=== PATIENT | female | born 1960 | race Caucasian/White ===

== ENCOUNTER 2018-02-14 15:38 | Emergency (ER) | payer MEDICARE, SELFPAY ==
[2018-02-14] VITALS (47 sets, daily range): BP systolic 110–133; BP diastolic 65–102; PULSE 55–96; RESP 3–33; TEMP 36.9; O2SAT 89–99
--- NOTE | 2018-02-14 16:02 | DI.REPORT_ITS ---
SYMPTOM/DIAGNOSIS: LEFT CHEST DISCOMFORT PA AND LATERAL CHEST: Comparison is made with 15 January 2010. The heart size is normal. The aorta is tortuous. The lungs are well inflated and clear. No infiltrate, effusion or pneumothorax is seen. IMPRESSION: Negative chest x-ray.
--- NOTE | 2018-02-14 16:04 | ED.GENADUL ---
Medical Decision Making - Lab Data Laboratory Results - last 24 hr 02/14/18 02/14/18 02/14/18 16:20 16:20 16:20 WBC 9.48 RBC 4.74 Hgb 14.4 Hct 40.9 MCV 86.3 MCH 30.4 MCHC 35.2 RDW 13.2 Plt Count 252 MPV 10.4 Immature Gran % 0.3 Neutrophils % 61.8 Lymphocytes % 26.5 Monocytes % 9.2 Eosinophils % 1.7 Basophils % 0.5 Absolute Neutrophils 5.86 Absolute Lymphocytes 2.51 Absolute Monocytes 0.87 H Absolute Eosinophils 0.16 Absolute Basophils 0.05 D-Dimer 597 H Sodium 142 Potassium 3.8 Chloride 107 Carbon Dioxide 23.4 Anion Gap 11.6 H BUN 22 H Creatinine 0.87 Estimated GFR/1.73 m2 >= 60.00 Glucose 88 Calcium 9.4 Magnesium 1.9 Total Bilirubin 0.3 AST 14 L ALT 27 Alkaline Phosphatase 106 Troponin I < 0.02 Total Protein 7.3 Albumin 3.4 Urine Color Urine Clarity Urine pH Ur Specific [place] Urine Protein Urine Ketones Urine Blood Urine Nitrite Urine Bilirubin Urine Urobilinogen Ur Leukocyte Esterase Urine RBC Urine WBC Ur Epithelial Cells Urine Crystals Urine Bacteria Urine Casts Urine Mucus Ur Culture Indicated? Urine Glucose 02/14/18 16:30 WBC RBC Hgb Hct MCV MCH MCHC RDW Plt Count MPV Immature Gran % Neutrophils % Lymphocytes % Monocytes % Eosinophils % Basophils % Absolute Neutrophils Absolute Lymphocytes Absolute Monocytes Absolute Eosinophils Absolute Basophils D-Dimer Sodium Potassium Chloride Carbon Dioxide Anion Gap BUN Creatinine Estimated GFR/1.73 m2 Glucose Calcium Magnesium Total Bilirubin AST ALT Alkaline Phosphatase Troponin I Total Protein Albumin Urine Color Yellow Urine Clarity Clear Urine pH 5.5 Ur Specific [place] 1.025 Urine Protein Negative Urine Ketones Trace H Urine Blood Large H Urine Nitrite Negative Urine Bilirubin Negative Urine Urobilinogen 0.2 Ur Leukocyte Esterase Small H Urine RBC 20-50 H Urine WBC 20-50 Ur Epithelial Cells Moderate Urine Crystals Moderate amorphous Urine Bacteria Moderate Urine Casts 0-2 fine granular Urine Mucus Moderate Ur Culture Indicated? No/sq. contamination Urine Glucose Negative - EKG Data -: EKG Interpreted by Ks EKG shows normal: sinus rhythm 02/14/18 16:05 Normal sinus rhythm, rate 91, QRS is narrow, there is no ST segment elevation present. - Radiology Data Radiology results: image reviewed - Medical Decision Making 57-year-old female presents with transient, sharp, left-sided chest discomfort while exercising/exerting herself in the garden. She arrives without fever, normotensive, mildly anxious. She pain improving. Differential diagnosis is broad including muscular cramping, gas, ACS, PE. IV placed, as obtain compression fluid bolus and ketorolac. Labs notable for slightly elevated d-dimer above her age related cutoff. Troponins negative, CBC and chemistries otherwise reassuring. Chest x-ray without acute finding. Given her presentation and slightly elevated d-dimer, she is referred for CT scan of the chest. No evidence of pulmonary embolism. Question of heart strain on her imaging per initial reading. Patient reexamined on a number of occasions, she is improved and is without further complaints. At the time of this dictation, 4 hour repeat troponin is pending. Patient be signed out to Dr. Velazquez pending review of final troponin and if negative anticipate final disposition to home with follow-up in primary care office. History of Present Illness - General Chief complaint: Chest Pain Stated complaint: CHEST PAIN Time Seen by Provider: 02/14/18 15:51 Source: patient, RN notes reviewed Mode of arrival: ambulatory Limitations: no limitations - History of Present Illness Initial comments: Chest pain: 57-year-old female states she was outside, shoveling dirt when she had the abrupt onset of shooting pain under her left breast that radiated to the left arm. Was severe, dropped her to her knees. She began to cough and felt sudden resolution of the pain. She states she subsequently drove herself to the emergency department and while en route had brief recurrence of the pain in her left shoulder which has now dissipated. She recently feels she has been dehydrated with episodes of lightheadedness and profuse sweating during yardwork. She has not noted any other modifying factors. She will also not recent cough that is been dry without production of sputum. - Related Data Famotidine [Pepcid] 40 mg PO BID tab-cap 11/27/17 Ondansetron [Zofran] 8 mg PO Q8H PRN tab-cap 11/27/17 Pantoprazole Sodium [Protonix] 40 mg PO BID tab-cap 11/27/17 Sucralfate [Carafate] 1 g PO QID tab-cap 11/27/17 Gabapentin 300 mg PO HS #30 tab-cap 12/25/17 Mirabegron [Myrbetriq] 50 mg PO DAILY #90 tab-cap 01/22/18 Solifenacin [Vesicare] 5 mg PO DAILY #90 tab-cap 01/22/18 Allergies Allergy/AdvReac Type Severity Reaction Status Date / Time prochlorperazine edisylate Allergy Intermediate dystonic Unverified 02/14/18 15:55 [From Compazine] prochlorperazine maleate Allergy Intermediate dystonic Unverified 02/14/18 15:55 [From Compazine] reaction droperidol Allergy Unverified 02/14/18 15:55 Review of Systems Other: 8 systems reviewed, otherwise negative Past Medical History - Past Medical History See nursing note General Exam - General Limitations: no limitations General appearance: alert, in no apparent distress, anxious - Head Head exam: Present: atraumatic, normocephalic - Eye Eye exam: Present: PERRL, EOMI - ENT ENT exam: Present: normal exam, normal external ear exam - Neck Neck exam: Present: normal inspection. Absent: tenderness - Respiratory Respiratory exam: Present: normal lung sounds bilaterally. Absent: respiratory distress - Cardiovascular Cardiovascular Exam: Present: regular rate, normal rhythm - GI/Abdominal GI/Abdominal exam: Present: soft. Absent: distended, tenderness - Extremities Exam Extremities exam: Present: normal inspection, full ROM, normal capillary refill. Absent: tenderness - Neurological Exam Neurological exam: Present: alert, oriented X3 - Psychiatric Psychiatric exam: Present: normal affect, anxious - Skin Skin exam: Present: warm, dry Course Vital Signs - 24 hr 02/14/18 15:50 Temperature 36.9 C Pulse 92 H Respiratory 21 Rate Blood Pressure 110/82
[2018-02-14 16:32] LABS: Abs Immature Grans 0.03 k/cumm (0.0-0.09); Absolute Basophil Count 0.05 k/cumm (0.0-0.2); Absolute Eosinophil Count 0.16 k/cumm (0.0-0.7); Absolute Lymphocyte Count 2.51 k/cumm (1.2-3.4); Absolute Monocyte Count 0.87 k/cumm (0.11-0.7); Absolute Neutrophil Count 5.86 k/cumm (1.2-6.7); Basophils % 0.5; Eosinophils % 1.7; HCT 40.9 % (36.0-46.0); HGB 14.4 g/dL (12.0-15.5); Immature Grans % 0.3; Lymphocytes % 26.5; Mean Corp. HGB Concentration 35.2 g/dL (32.0-36.0); Mean Corpuscular Hemoglobin 30.4 pg (27.0-33.0); Mean Corpuscular Volume 86.3 fL (80-95); Mean Platelet Volume 10.4 fL (8.0-11.0); Monocytes % 9.2; Neutrophils % 61.8; Platelet Count 252 x1000/uL (130-400); RBC 4.74 m/cumm (4.00-5.20); RBC Distribution Width 13.2 % (11.7-14.6); White Blood Cell Count 9.48 k/cumm (4.4-10.8)
[2018-02-14] MEDS: Normal Saline 1,000 ML 1000 ML IV (16:36)
[2018-02-14] MEDS: Ondansetron 4 MG/2 ML VIAL IVP (16:37)
--- NOTE | 2018-02-14 16:47 | DI.VRAD_ITS ---
EXAM: XR Chest, 2 Views CLINICAL HISTORY: 57 years old, female; Pain; Chest pain TECHNIQUE: Frontal and lateral views of the chest. COMPARISON: No relevant prior studies available. FINDINGS: Lungs: Unremarkable. No consolidation. Pleural space: Unremarkable. No pneumothorax. Heart: Unremarkable. No cardiomegaly. Mediastinum: Unremarkable. Bones/joints: Mild degenerative spondylosis of the thoracic spine. IMPRESSION: No acute findings. Dictated and Authenticated by: Remi Walton MD. Ordering:JULIANA HEWITT MD
[2018-02-14 17:03] LABS: ALT 27 U/L (12-78); AST 14 U/L (15-37); Albumin 3.4 g/dL (3.4-5.0); Alkaline Phosphatase 106 U/L (46-116); Anion Gap 11.6 mmol/L (3-11); BUN 22 mg/dL (7-18); Bilirubin, Total 0.3 mg/dL (0.2-1.0); CO2 23.4 mmol/L (21.0-32.0); CREATININE 0.87 mg/dL (0.55-1.02); Calcium 9.4 mg/dL (8.5-10.1); Chloride 107 mmol/L (98-107); Glucose 88 mg/dL (70-100); Magnesium 1.9 mg/dL (1.8-2.4); Potassium 3.8 mmol/L (3.5-5.1); Sodium 142 mmol/L (136-145); Total Protein 7.3 g/dL (6.4-8.2)
[2018-02-14 17:04] LABS: Troponin I < 0.02 ng/mL (0.00-0.06)
[2018-02-14] MEDS: Ketorolac 30 MG/ML VIAL 15 MG IVP (17:05)
[2018-02-14 17:10] LABS: D-Dimer 597 ng/mlFEU (<500)
[2018-02-14 17:13] LABS: Bilirubin Negative (Negative); Blood Large (Negative); Clarity Clear; Glucose Negative (Negative); Ketones Trace mg/dL (Negative); Leukocyte Esterase Small (Negative); Nitrite Negative (Negative); Specific Gravity 1.025 (1.005-1.025); Urobilinogen 0.2 EU/dL (Up TO 0.2); pH 5.5 (5-8)
[2018-02-14 17:28] LABS: Bacteria Moderate HPF (Negative); C & S Indicated? No/Sq. Contamination; Casts 0-2 Fine Granular LPF (Negative); Crystals Moderate Amorphous HPF (Negative); Epithelial Cells Moderate HPF (Negative); Mucus Moderate (Negative); RBC 20-50 (0-2); WBC 20-50 HPF (0-5)
--- NOTE | 2018-02-14 17:46 | DI.RPTCT_ITS ---
SYMPTOMS/DIAGNOSIS: LEFT-SIDED CHEST PAIN, ELEVATED D-DIMER CHEST CT FOR PULMONARY EMBOLISM: CT angiography was performed with multi slice acquisition and multi planar and 3D reconstruction. There is no evidence of pulmonary emboli or aortic dissection. There is motion at the level of the aortic root, as well as at the level of the heart. No mass or adenopathy is seen. No pleural or pericardial effusions are present. No infiltrates or pulmonary nodules are identified. There is a small hiatal hernia. IMPRESSION: No evidence of pulmonary emboli or other acute abnormality.
[2018-02-14] MEDS: Omnipaque 350 MG/ML 100 ML BTL IJ (18:27)
--- NOTE | 2018-02-14 18:56 | DI.VRAD_ITS ---
EXAM: CT Angiography Chest With Intravenous Contrast CLINICAL HISTORY: 57 years old, female; Pain and abnormal findings; Abnormal diagnostic tests; Elevated d-dimer; Chest pain; Left-sided chest pain TECHNIQUE: Axial computed tomographic angiography images of the chest with intravenous contrast using pulmonary embolism protocol. MIP reconstructed images were created and reviewed. Coronal and sagittal reformatted images were created and reviewed. COMPARISON: CR - CHEST 2 VIEWS PA,LAT 2018-02-14 16:31 FINDINGS: Pulmonary arteries: The main pulmonary arteries have normal diameters measuring 2.4 cm on the right and 2.3 cm and the left. No pulmonary embolism. Aorta: No acute findings. No thoracic aortic aneurysm. Lungs: Unremarkable. No mass. No consolidation. Pleural space: Unremarkable. No significant effusion. No pneumothorax. Heart: RV-LV ratio of approximately 1.4, suggestive of right heart strain. No significant pericardial effusion. Bones/joints: Mild degenerative spondylosis of the thoracic spine. No acute fracture. No dislocation. Soft tissues: Unremarkable. Lymph nodes: Unremarkable. No enlarged lymph nodes. Stomach and bowel: Small gastric hiatus hernia. IMPRESSION: 1. No pulmonary arterial embolism. 2. RV-LV ratio of approximately 1.4, suggestive of right heart strain. 3. Small gastric hiatus hernia. Dictated and Authenticated by: Remi Walton MD. Ordering:JULIANA HEWITT MD
[2018-02-14 20:21] LABS: Troponin I < 0.02 ng/mL (0.00-0.06)
--- NOTE | 2018-02-14 20:30 | ED.FU ---
Disposition Clinical Impression: Chest pain Disposition: HOME Condition: Good Instructions: Chest Pain (ED) Additional Instructions: You were evaluated today for chest pain with EKG, laboratory studies, chest x-ray and CAT scan. These did not show any significant abnormalities. Please follow-up with your primary care and contact them on Friday. Return to ED for fever, difficulty breathing, recurrent/worsening chest pain, other concerns. Referrals: Angle Santamaria [Primary Care Provider] - Medical Decision Making - Lab Data Laboratory Tests 02/14/18 02/14/18 02/14/18 16:20 16:20 16:20 WBC 9.48 RBC 4.74 Hgb 14.4 Hct 40.9 MCV 86.3 MCH 30.4 MCHC 35.2 RDW 13.2 Plt Count 252 MPV 10.4 Immature Gran % 0.3 Neutrophils % 61.8 Lymphocytes % 26.5 Monocytes % 9.2 Eosinophils % 1.7 Basophils % 0.5 Absolute Neutrophils 5.86 Absolute Lymphocytes 2.51 Absolute Monocytes 0.87 H Absolute Eosinophils 0.16 Absolute Basophils 0.05 D-Dimer 597 H Sodium 142 Potassium 3.8 Chloride 107 Carbon Dioxide 23.4 Anion Gap 11.6 H BUN 22 H Creatinine 0.87 Estimated GFR/1.73 m2 >= 60.00 Glucose 88 Calcium 9.4 Magnesium 1.9 Total Bilirubin 0.3 AST 14 L ALT 27 Alkaline Phosphatase 106 Troponin I < 0.02 Total Protein 7.3 Albumin 3.4 Urine Color Urine Clarity Urine pH Ur Specific [place] Urine Protein Urine Ketones Urine Blood Urine Nitrite Urine Bilirubin Urine Urobilinogen Ur Leukocyte Esterase Urine RBC Urine WBC Ur Epithelial Cells Urine Crystals Urine Bacteria Urine Casts Urine Mucus Ur Culture Indicated? Urine Glucose 02/14/18 02/14/18 16:30 19:50 WBC RBC Hgb Hct MCV MCH MCHC RDW Plt Count MPV Immature Gran % Neutrophils % Lymphocytes % Monocytes % Eosinophils % Basophils % Absolute Neutrophils Absolute Lymphocytes Absolute Monocytes Absolute Eosinophils Absolute Basophils D-Dimer Sodium Potassium Chloride Carbon Dioxide Anion Gap BUN Creatinine Estimated GFR/1.73 m2 Glucose Calcium Magnesium Total Bilirubin AST ALT Alkaline Phosphatase Troponin I < 0.02 Total Protein Albumin Urine Color Yellow Urine Clarity Clear Urine pH 5.5 Ur Specific [place] 1.025 Urine Protein Negative Urine Ketones Trace H Urine Blood Large H Urine Nitrite Negative Urine Bilirubin Negative Urine Urobilinogen 0.2 Ur Leukocyte Esterase Small H Urine RBC 20-50 H Urine WBC 20-50 Ur Epithelial Cells Moderate Urine Crystals Moderate amorphous Urine Bacteria Moderate Urine Casts 0-2 fine granular Urine Mucus Moderate Ur Culture Indicated? No/sq. contamination Urine Glucose Negative Results reviewed for labs ordered during visit: Yes - Medical Decision Making Patient's 4-hour troponin remains negative. She remains asymptomatic and feels fine. She will be discharged home to follow-up with primary care as she had discussed with Dr. Wolfe. Care Signed Out By:: Dr. Wolfe - Vital Signs Recent Vitals - 8H: Vital Signs - 8 hr 02/14/18 02/14/18 02/14/18 15:48 15:50 15:51 Temperature 98.4 F Pulse 92 H 86 Respiratory 21 19 21 Rate Blood Pressure 110/82 110/82 Pulse Oximetry 97 99 98 02/14/18 02/14/18 02/14/18 16:00 16:01 16:10 Temperature Pulse 84 Respiratory 23 25 H 19 Rate Blood Pressure 112/71 Pulse Oximetry 98 97 97 02/14/18 02/14/18 02/14/18 16:16 16:20 16:39 Temperature Pulse 86 Respiratory 16 15 17 Rate Blood Pressure 119/102 Pulse Oximetry 99 98 97 02/14/18 02/14/18 02/14/18 16:40 16:41 16:45 Temperature Pulse 78 78 Respiratory 14 3 L 18 Rate Blood Pressure 133/69 133/69 Pulse Oximetry 98 97 97 02/14/18 02/14/18 02/14/18 16:46 16:50 17:00 Temperature Pulse 77 Respiratory 17 15 15 Rate Blood Pressure 128/71 Pulse Oximetry 97 96 97 02/14/18 02/14/18 02/14/18 17:01 17:10 17:16 Temperature Pulse 70 71 Respiratory 28 H 6 L 15 Rate Blood Pressure 125/68 126/72 Pulse Oximetry 96 94 L 92 L 02/14/18 02/14/18 02/14/18 17:20 17:30 17:31 Temperature Pulse 74 Respiratory 15 15 29 H Rate Blood Pressure 112/66 Pulse Oximetry 89 L 91 L 92 L 02/14/18 02/14/18 02/14/18 17:40 17:46 17:50 Temperature Pulse 72 Respiratory 26 H 10 L 18 Rate Blood Pressure 118/71 Pulse Oximetry 92 L 96 95 02/14/18 02/14/18 02/14/18 18:00 18:01 18:25 Temperature Pulse 70 Respiratory 12 12 13 Rate Blood Pressure 117/68 Pulse Oximetry 96 96 98 02/14/18 02/14/18 02/14/18 18:26 18:30 18:31 Temperature Pulse 79 76 Respiratory 26 H 15 29 H Rate Blood Pressure 127/65 111/87 Pulse Oximetry 98 98 98 02/14/18 02/14/18 02/14/18 18:40 18:47 18:50 Temperature Pulse 64 Respiratory 33 H 9 L 11 L Rate Blood Pressure 117/75 Pulse Oximetry 98 98 97 02/14/18 02/14/18 19:00 19:01 Temperature Pulse 66 Respiratory Rate Blood Pressure 119/72 Pulse Oximetry 95 96 - Continuation of Care Continuation of Care Plan: Patient signed out to me pending a second troponin. She had presented with chest pain and was completely evaluated and worked up by Dr. Wolfe. If the 4-hour troponin was negative, he felt that she was fine to go home with follow-up with primary care.
== END 2018-02-14 20:53 | disposition home or self-care (01) ==
PROVIDERS: Emergency Medicine; Emergency Provider Emergency Medicine; PCP Nurse Practitioner Family
DX: R07.9 Chest pain, unspecified (principal); R79.1 Abnormal coagulation profile; G35 Multiple sclerosis
CPT/HCPCS: 71046; 71275; 93005; 96361; 96374; 96375; 99284; 99285; J1885; J2405; 36415; 80053; 81003; 81015; 83735; 84484; 85025; 85379; 93010; J3490

== ENCOUNTER 2018-03-12 02:13 | Outpatient (CLI) | payer MEDICARE, SELFPAY ==
[2018-03-12] MEDS: Barium Sulfate 700 MG TAB PO (10:23)
[2018-03-12] MEDS: Barium Sulfate 60% W/V 355 ML BTL PO (10:23)
--- NOTE | 2018-03-12 10:24 | DI.RAD_ITS ---
SYMPTOMS/DIAGNOSIS: DYSPHAGIA, ? ASPIRATION BARIUM SWALLOW: Fluoroscopy Time: 41 sec A lateral conference and event organiser view of the neck shows mild degenerative changes. The airway is unremarkable. The epiglottis appears normal. There is no prevertebral soft tissue swelling. The PA conference and event organiser view of the chest is compared with [id number]. The heart size is normal. The aorta is mildly tortuous. The lungs are clear. The patient swallowed barium without difficulty. The oropharyngeal transient was normal. No aspiration was identified during the exam. Esophageal peristalsis is normal. A small sliding hiatal hernia was noted when the patient was placed supine. There is severe gastroesophageal reflux. A barium tablet passed easily into the stomach without delay although the patient had the sensation that the pill was stuck in the upper throat. IMPRESSION: Small sliding hiatal hernia and severe gastroesophageal reflux. No evidence of stricture.
== END 2018-03-12 02:33 ==
PROVIDERS: PCP Nurse Practitioner Family; Visit Provider Internal Medicine Gastroenterology
DX: R13.10 Dysphagia, unspecified (principal); K44.9 Diaphragmatic hernia without obstruction or gangrene; K21.9 Gastro-esophageal reflux disease without esophagitis
CPT/HCPCS: 74220; J3490

== ENCOUNTER 2018-03-12 09:52 | Outpatient (REF) | payer MEDICARE, SELFPAY | END 2018-03-12 10:12 | LOC: LBN 09:52 | PROVIDERS: PCP Nurse Practitioner Family; Visit Provider Internal Medicine Gastroenterology | DX: K52.9 Noninfective gastroenteritis and colitis, unspecified (principal) | CPT/HCPCS: 87329; 82710; 87177 ==

== ENCOUNTER → 2018-04-20 12:26 | Outpatient (BNVA) | payer MEDICARE, SELFPAY | PROVIDERS: Visit Provider Nurse Practitioner Gerontology | DX: N39.46 Mixed incontinence (principal); R31.0 Gross hematuria | CPT/HCPCS: 81003; 99214 ==

== ENCOUNTER → 2018-10-21 11:10 | Outpatient (BNVA) | payer MEDICARE, SELFPAY | PROVIDERS: PCP Nurse Practitioner Family; Visit Provider Nurse Practitioner Gerontology | DX: N39.46 Mixed incontinence (principal); R31.9 Hematuria, unspecified | CPT/HCPCS: 81003; 99214 ==

== ENCOUNTER 2018-10-21 13:02 | Outpatient (REF) | payer MEDICARE, SELFPAY | END 2018-10-21 13:22 | LOC: LBN 13:02 | PROVIDERS: PCP Nurse Practitioner Family; Visit Provider Nurse Practitioner Gerontology | DX: R31.9 Hematuria, unspecified (principal) | CPT/HCPCS: 87086 ==

== ENCOUNTER 2019-01-28 12:53 | Outpatient (CLI) | payer MEDICARE, SELFPAY ==
--- NOTE | 2019-01-28 14:40 | DI.RAD_ITS ---
SYMPTOMS/DIAGNOSIS: GASTROESOPHAGEAL REFLUX DISEASE, K21.9, CHECK FOR ROBERT PA AND LATERAL CHEST: Comparison is made with March,. The heart size is within normal limits. The aorta is tortuous. The lungs are well inflated and clear. A small hiatal hernia is visible. IMPRESSION: Small hiatal hernia. No acute abnormality.
== END 2019-01-28 13:13 ==
PROVIDERS: PCP Nurse Practitioner Family; Visit Provider Internal Medicine Gastroenterology
DX: K21.9 Gastro-esophageal reflux disease without esophagitis (principal); K44.9 Diaphragmatic hernia without obstruction or gangrene
CPT/HCPCS: 71046

== ENCOUNTER 2019-07-14 12:07 | Outpatient (CLI) | payer MEDICARE, SELFPAY ==
--- NOTE | 2019-07-14 13:44 | DI.RAD_ITS ---
EXAM: XR CHEST 2V PA AND LATERAL INDICATION: POSTOP PAIN AFTER SHANTELL FUNDOPLICATION 9 DAYS AGO, G89.18, CHEST PAIN, R07.9. COMPARISON: No exams were available for comparison TECHNIQUE: 2D digital imaging was performed. FINDINGS: The heart is mildly enlarged. The aorta is mildly tortuous. Surgical clips are seen at the GE junct ion. There is no evidence of pneumomediastinum, free air or pneumothorax. The lungs appear clear. The visualized portions of the bowel are unremarkable. IMPRESSION: No acute abnormality.
== END 2019-07-14 12:27 ==
PROVIDERS: PCP Family Medicine; Visit Provider Family Medicine
DX: R07.9 Chest pain, unspecified (principal); I51.7 Cardiomegaly; G89.18 Other acute postprocedural pain
CPT/HCPCS: 71046

== ENCOUNTER → 2020-07-17 18:22 | Outpatient (CLI) | payer MEDICARE, SELFPAY ==
--- NOTE | 2020-07-17 12:45 | DI.RAD_ITS ---
EXAM: XR ANKLE LT COMPLETE CLINICAL HISTORY: s/p trauma M25.572 PAIN LT ANKLE. TECHNIQUE: 2D digital imaging was performed. COMPARISON: No exams were available for comparison FINDINGS: There is no evidence of fracture or widening mortise. Talar dome appears unremarkable. There is no osseous coalition. 6 millimeter inferior calcaneal spur is noted. IMPRESSION: DATA REPOSITORY: RADIATION DOSE DELIVERED:
--- NOTE | 2020-07-17 12:45 | DI.RAD_ITS ---
EXAM: XR FOOT LT COMPLETE CLINICAL HISTORY: s/p trauma M79.672 PAIN LT FOOT. TECHNIQUE: 2D digital imaging was performed. COMPARISON: CR XR ANKLE LT COMPLETE from 07/17/2020 FINDINGS: There is no evidence fracture nor diastasis of the Lisfranc joint. 6 millimeters. Calcaneal spur is noted. No calcifications plantar fascia. No osseous coalition. Sesamoid bones noted on the medial aspect foot adjacent to navicular tuberosity. There is mild hallux valgus. IMPRESSION: DATA REPOSITORY: RADIATION DOSE DELIVERED:
== END ==
PROVIDERS: PCP Family Medicine; Visit Provider Nurse Practitioner Family
DX: M79.672 Pain in left foot (principal); M20.12 Hallux valgus (acquired), left foot
CPT/HCPCS: 73610; 73630

== ENCOUNTER → 2020-09-27 01:31 | Outpatient (CLI) | payer MEDICARE, SELFPAY ==
[2020-09-27 09:23] LABS: CREATININE 0.7 mg/dL (0.55-1.02)
--- NOTE | 2020-09-27 10:35 | DI.CT_ITS ---
EXAM: CT ABDOMEN PELVIS W CLINICAL HISTORY: S/P FALL, INJURY, T14.90XA. TECHNIQUE: Imaging Protocol: Axial computed tomography images with coronal and sagittal reformatted images were created and reviewed CONTRAST MATERIAL: Intravenous: Omnipaque 100cc Oral: Yes COMPARISON: CT CHEST FOR PULMONARY EMBOLUS from 02/14/2018 FINDINGS: VISUALIZED LUNG BASES: No nodules nor pleural effusions evident. ABDOMEN: There is no ascites. Findings at the GE junction which probably reflect prior fundoplication surgery . LIVER: Mild hepatic steatosis. No distinct focal hepatic lesions identified. GALLBLADDER/BILIARY: No obvious gallbladder pathology. CBD is not dilated. PANCREAS: No evidence of pancreatic mass nor dilatation of the pancreatic duct. SPLEEN: Spleen is not enlarged. No obvious intrasplenic lesions. Splenic and portal veins are paten t. ADRENALS: There are no significant adrenal masses. KIDNEYS:No cysts evident. No solid renal masses. No calculi nor hydronephrosis.. ABDOMINAL AORTA: Abdominal aorta is not enlarged. LYMPH NODES:There is no retroperitineal nor paraaortic adenopathy. ABDOMINAL WALL/GI: No evidence of significant anterior abdominal wall hernia. No bowel obstruction. No evidence of bowel wall nor mesenteric hematoma. PELVIS: GI: No evidence of appendicitis.There is extensive sigmoid diverticulosis. Diverticuli are seen exte nding up to and proximal to the splenic flexure. There is no obvious acute diverticulitis. LYMPH NODES: There is no intrapelvic nor inguinal adenopathy. REPRODUCTIVE: Age appropriate. No free fluid URINARY BLADDER: Collapsed. OSSEOUS: In the left side the L1 vertebral body there is a lucency at the junction of the body and le ft pedicle which measures 10 x 8 millimeters, not exhibiting a sclerotic border. This is not expansi le. This is most probably a benign bone lesion given that it is unchanged from CT scan chest perform ed February 2018. 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 IMPRESSION: 1. Evidence of prior gastric fundoplication surgery. 2. Mild hepatic steatosis. No discrete focal hepatic lesions. 3. No evidence of significant intra-abdominal trauma, given history here. 4. Extensive sigmoid diverticulosis. No obvious acute diverticulitis although please note that a sub tle case of diverticulitis can be missed given the extensive involvement of the sigmoid with divertic feliciano here. Stable small benign-appearing bone lesion in the left side of L1 vertebral body, unchanged 2018 and p robably a small benign intraosseous hemangioma. No fractures nor listhesis. Tiny benign bone island is noted in the right hip femoral head. No hip fractures evident. RADIATION DOSE DELIVERED: Total DLP DATA REPOSITORY: All CT scans at this facility are submitted to the National Radiology Data Registry (NRDR) Dose Index Registry (DIR) with the [employer] (A[employer]). RADIATION OPTIMIZATION: All CT scans at this facility use at least one of these dose optimization te chniques: automated exposure control; mA and/or kV adjustment per patient size (includes targeted exa ms where dose is matched to clinical indication); or iterative reconstruction.
[2020-09-27] MEDS: Omnipaque 350 MG/ML 100 ML BTL IJ (10:40)
[2020-09-27] MEDS: Normal Saline - Diluent 50 ML VIAL IV (10:40)
--- NOTE | 2020-09-27 10:40 | DI.CT_ITS ---
EXAM: CT LUMBAR SPINE RECONS CLINICAL HISTORY: S/P FALL, TRAUMA, LOW BACK PAIN, ? FX. TECHNIQUE: Imaging Protocol: Axial computed tomography images with coronal and sagittal reformatted images were created and reviewed COMPARISON: CT CHEST FOR PULMONARY EMBOLUS from 02/14/2018 FINDINGS: Bones: There are no compression fractures nor obvious listhesis. Small lesion in the posterior left side of L1 is noted which is unchanged from CT scan of 2018 and probably a benign intraosseous heman gioma. The main osseous finding here is a defect-possible fracture in the left pars interarticularis of L5 l evel. There is no similar defect in the opposite-right side although there is some sclerosis. There are no obvious disc herniations.. No central spinal canal stenosis. No obvious foraminal sten osis No obvious sacral fracture. PARASPINAL SOFT TISSUES: Visualized paraspinal tissues appear unremarkable. IMPRESSION: 1. There is a unilateral left-sided line through the left pars interarticularis of L5 level which may represent a fracture at this level. No prominent displacement. No listhesis evident. To determine if this is an acute finding would recommend nuclear bone scan or MRI. 2. 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 RADIATION DOSE DELIVERED: Total DLP DATA REPOSITORY: All CT scans at this facility are submitted to the National Radiology Data Registry (NRDR) Dose Index Registry (DIR) with the [employer] (ACR). RADIATION OPTIMIZATION: All CT scans at this facility use at least one of these dose optimization te chniques: automated exposure control; mA and/or kV adjustment per patient size (includes targeted exa ms where dose is matched to clinical indication); or iterative reconstruction.
[2020-09-27] MEDS: Breeza Beverage 473 ML BTL PO (10:41)
== END ==
PROVIDERS: PCP Family Medicine; Visit Provider Emergency Medicine
DX: M54.5 Low back pain (principal); R93.7 Abnormal findings on diagnostic imaging of other parts of musculoskeletal system; K76.0 Fatty (change of) liver, not elsewhere classified; K57.30 Diverticulosis of large intestine without perforation or abscess without bleeding; Z98.84 Bariatric surgery status
CPT/HCPCS: 74177; 82565; J3490

== ENCOUNTER → 2020-09-28 10:04 | Outpatient (BNVA) | payer MEDICARE, SELFPAY | PROVIDERS: PCP Family Medicine; Referring Provider Family Medicine; Visit Provider Nurse Practitioner Gerontology | DX: N39.46 Mixed incontinence (principal) | CPT/HCPCS: 99213 ==

== ENCOUNTER 2021-04-18 16:30 | Outpatient (REF) | payer MEDICARE, SELFPAY | END 2021-04-18 16:31 | disposition home or self-care (01) | LOC: LBN 16:30 | PROVIDERS: PCP Family Medicine; Visit Provider Family Medicine | DX: R10.84 Generalized abdominal pain (principal) | CPT/HCPCS: 87077; 87086; 87186 ==

== ENCOUNTER 2021-05-07 14:18 | Outpatient (REF) | payer MEDICARE, SELFPAY | END 2021-05-07 14:19 | disposition home or self-care (01) | LOC: LBN 14:18 | PROVIDERS: PCP Family Medicine; Visit Provider Internal Medicine Gastroenterology | DX: K52.9 Noninfective gastroenteritis and colitis, unspecified (principal) | CPT/HCPCS: 87329; 87177 ==

== ENCOUNTER 2022-05-01 14:16 | Outpatient (CLI) | payer MEDICARE, SELFPAY ==
--- NOTE | 2022-05-01 14:30 | RT.EKG_ITS ---
APPROVED REPORT Exam: Resting ECG Reason for Exam: tachycardia Patient Location: O HR:77 bpm ECG Measurements Heart Rate 77 AXIS NE 163 P 38 QRSd 78 QRS -17 QT 353 T -12 QTc 400 Conclusion Sinus rhythm...normal P axis, V-rate 50- 99 Baseline artifact Probably normal EKG
== END 2022-05-01 14:17 | disposition home or self-care (01) ==
PROVIDERS: PCP Family Medicine; Visit Provider Nurse Practitioner Family
DX: R55 Syncope and collapse (principal)
CPT/HCPCS: 93010

== ENCOUNTER 2022-05-01 21:39 | Outpatient (REF) | payer MEDICARE, SELFPAY | END 2022-05-01 21:40 | disposition home or self-care (01) | LOC: LBN 21:39 | PROVIDERS: PCP Family Medicine; Visit Provider Nurse Practitioner Family | DX: R31.9 Hematuria, unspecified (principal); I10 Essential (primary) hypertension; N89.8 Other specified noninflammatory disorders of vagina | CPT/HCPCS: 87086; 87480; 87510; 87660 ==

== ENCOUNTER 2022-05-03 09:55 | Outpatient (RCR) | payer MEDICARE, SELFPAY ==
--- NOTE | 2022-05-03 09:45 | HOLTER_ITS ---
APPROVED REPORT Conclusion This is a 48-hour Holter monitor ordered for syncope Rhythm throughout was sinus with an average heart rate of 70. Minimum was 56, maximum 142 There were very rare atrial and ventricular ectopic beats There was one 4 beat self-limited atrial run There was no atrial fibrillation, no high-grade AV block, no pauses greater than 3 seconds There were no apparent patient symptoms
== END 2022-05-06 23:59 | disposition home or self-care (01) ==
LOC: CARDOPNVT 09:55
PROVIDERS: PCP Family Medicine; Visit Provider Nurse Practitioner Family
DX: R55 Syncope and collapse (principal)
CPT/HCPCS: 93227; 93225; 93226

== ENCOUNTER 2022-05-03 10:58 | Outpatient (CLI) | payer MEDICARE, SELFPAY ==
[2022-05-03 10:39] LABS: Abs Immature Grans 0.04 10^3/uL (0.0-0.06); Absolute Basophil Count 0.09 10^3/uL (0.0-0.2); Absolute Eosinophil Count 0.29 10^3/uL (0.0-0.7); Absolute Lymphocyte Count 2.94 10^3/uL (1.2-3.4); Absolute Monocyte Count 0.86 10^3/uL (0.1-0.8); Absolute Neutrophil Count 4.74 10^3/uL (1.2-6.7); Eosinophils % 3.2; HCT 46.3 % (36.0-46.0); HGB 15.1 g/dL (11.2-15.7); Immature Grans % 0.4; Lymphocytes % 32.8; MCH 29.5 pg (27.0-33.0); MCHC 32.6 % (32.0-36.0); MCV 91 fL (80-95); MPV 9.9 fL (8.0-11.0); Monocytes % 9.6; Platelet Count 296 10^3/uL (130-400); RBC 5.11 10^6/uL (3.93-5.22); RDW 12.9 % (11.7-14.6); RDW-SD 42.2 fL; WBC 8.96 10^3/uL (4.4-10.8)
[2022-05-03 12:08] LABS: ALT 18 U/L (14-59); AST 18 U/L (15-37); Albumin 3.6 g/dL (3.4-5.0); Alkaline Phosphatase 120 U/L (46-116); Anion Gap 7.1 mmol/L (3-11); BUN 15 mg/dL (7-18); Bilirubin, Total 0.3 mg/dL (0.2-1.0); CO2 27.9 mmol/L (21.0-32.0); CREATININE 0.8 mg/dL (0.55-1.02); Chloride 106 mmol/L (98-107); Estimated GFR 82.74 (mL/min/1.73m2); FREE T4 0.99 ng/dL (0.76-1.46); Glucose 98 mg/dL (74-106); Magnesium 2.1 mg/dL (1.8-2.4); Potassium 3.9 mmol/L (3.5-5.1); Sodium 141 mmol/L (136-145); TSH 0.99 uIU/mL (0.36-3.74); Total Protein 7.9 g/dL (6.4-8.2)
== END 2022-05-03 10:59 | disposition home or self-care (01) ==
LOC: LBO 11:01
PROVIDERS: Nurse Practitioner Family; PCP Family Medicine; Visit Provider Family Medicine
DX: I10 Essential (primary) hypertension (principal); R55 Syncope and collapse
CPT/HCPCS: 36415; 80053; 83735; 84439; 84443; 85025; 93225

== ENCOUNTER 2022-10-17 15:27 | Emergency (ER) | payer MEDICARE, SELFPAY ==
[2022-10-17 15:26] VITALS: BP 134/104; PULSE 75; RESP 18; TEMP 37.3; O2SAT 99
--- NOTE | 2022-10-17 16:00 | DI.CT_ITS ---
Exam(s) CT HEAD CERV SPINE FACIAL WO EXAM: CT HEAD CERV SPINE FACIAL WO CLINICAL HISTORY: left orbital contusion, neck pain post fall. TECHNIQUE: Imaging Protocol: Axial computed tomography images with coronal and sagittal reformatted images were created and reviewed COMPARISON: CT HEAD WITHOUT CONTRAST from 10/04/2014 FINDINGS: CT Head: Ventricles and Extra axial spaces: Normal in size and morphology for the patient's age. Hemorrhage: None. Cerebral parenchyma: Normal. Midline shift: None. Brainstem/Cerebellum: Normal. Calvarium: Normal. Visualized Paranasal sinuses/Mastoids: Clear. Soft Tissues: Unremarkable. CT Face: Facial Bones: No fracture is noted in facial bones. Sinuses and Mastoids: Unremarkable. Globes, extraocular muscles, optic nerves and retrobulbar fat: Normal. Upper aerodigestive tract: Normal. Mandible and bilateral temporomandibular joints: Normal. Soft tissues: Normal. CT cervical spine: Mild degenerative changes. No evidence of fracture. Alignment is normal. No soft tissue findings. No pneumothorax at the lung apices. IMPRESSION: 1. Head CT: No acute intracranial process. 2. Facial CT: No acute facial fracture. 3. Cervical spine CT: Mild degenerative changes. RADIATION DOSE DELIVERED: 2,015.53mGy.cm Total DLP DATA REPOSITORY: All CT scans at this facility are submitted to the National Radiology Data Registry (NRDR) Dose Index Registry (DIR) with the [employer] (ACR). RADIATION OPTIMIZATION: All CT scans at this facility use at least one of these dose optimization te chniques: automated exposure control; mA and/or kV adjustment per patient size (includes targeted exa ms where dose is matched to clinical indication); or iterative reconstruction.
--- NOTE | 2022-10-17 16:10 | DI.RAD_ITS ---
Exam(s) XR KNEE LT 3V AP,LAT,SHILA EXAM: XR KNEE LT 3V AP,LAT,SHILA CLINICAL HISTORY: knee pain, post fall. TECHNIQUE: 2D digital imaging was performed. Three views. COMPARISON: No exams were available for comparison FINDINGS: BONES: No acute fracture is present. No bony destructive lesion is seen. JOINTS: The knee is normally aligned. A small joint effusion is seen. SOFT TISSUE: Normal. IMPRESSION: Small joint effusion. DATA REPOSITORY: RADIATION DOSE DELIVERED:
--- NOTE | 2022-10-17 16:10 | DI.RAD_ITS ---
Exam(s) XR HAND RT COMPLETE EXAM: XR HAND RT COMPLETE CLINICAL HISTORY: 4th finger pain. TECHNIQUE: 2D digital imaging was performed. Three views. COMPARISON: No exams were available for comparison FINDINGS: BONES: No acute fracture is present. No bony destructive lesion is seen. JOINTS: No dislocation present. Minimal degenerative changes. SOFT TISSUE: Normal. IMPRESSION: Unremarkable radiographs of the right hand. DATA REPOSITORY: RADIATION DOSE DELIVERED:
--- NOTE | 2022-10-17 16:12 | DI.RAD_ITS ---
Exam(s) XR FOREARM LT EXAM: XR FOREARM LT CLINICAL HISTORY: left forearm. TECHNIQUE: 2D digital imaging was performed. Two views. COMPARISON: No exams were available for comparison FINDINGS: BONES: No acute fracture is present. No bony destructive lesion is seen. Visualized portion of elbow and wrist joints are unremarkable. SOFT TISSUE: Normal. IMPRESSION: Unremarkable radiographs of the left forearm. DATA REPOSITORY: RADIATION DOSE DELIVERED:
--- NOTE | 2022-10-17 17:47 | DI.VRAD_ITS ---
PROCEDURE INFORMATION: Exam: CT Head Without Contrast Exam date and time: 10/17/2022 5:27 PM Age: 62 years old Clinical indication: Injury or trauma; Other: Left orbital contusion, neck pain post fall TECHNIQUE: Imaging protocol: Computed tomography of the head without contrast. COMPARISON: No relevant prior studies available. FINDINGS: Brain: Mild volume loss No hemorrhage. Unremarkable white matter. No mass effect. Cerebral ventricles: No ventriculomegaly. Paranasal sinuses: Visualized sinuses are unremarkable. No fluid levels. Mastoid air cells: Visualized mastoid air cells are well aerated. Bones/joints: Unremarkable. No acute fracture. Soft tissues: Unremarkable. IMPRESSION: No acute intracranial abnormality. PROCEDURE INFORMATION: Exam: CT Maxillofacial Without Contrast Exam date and time: 10/17/2022 5:27 PM Age: 62 years old Clinical indication: Injury or trauma; Other: Left orbital contusion, neck pain post fall TECHNIQUE: Imaging protocol: Computed tomography of the face without contrast. COMPARISON: No relevant prior studies available. FINDINGS: Orbital cavities: Orbits are normal. Globes are unremarkable. Bones/joints: No acute fracture. Paranasal sinuses: Normal. No air-fluid levels. Soft tissues: Unremarkable. IMPRESSION: No acute findings. PROCEDURE INFORMATION: Exam: CT Cervical Spine Without Contrast Exam date and time: 10/17/2022 5:27 PM Age: 62 years old Clinical indication: Injury or trauma; Other: Left orbital contusion, neck pain post fall TECHNIQUE: Imaging protocol: Computed tomography of the cervical spine without contrast. COMPARISON: RF barium swallow 03/12/2018 9:28 AM FINDINGS: Bones/joints: No acute fracture. Normal alignment. No significant disc bulge or herniation. No severe spinal canal stenosis. No significant neural foraminal narrowing. Lungs: Lung apices are normal. Soft tissues: Unremarkable. IMPRESSION: No acute findings. Dictated and Authenticated by: Felipe Nickerson MD. Ordering:SUZANNE Daniel MD
--- NOTE | 2022-10-17 17:51 | DI.VRAD_ITS ---
PROCEDURE INFORMATION: Exam: XR Right Hand Exam date and time: 10/17/2022 5:37 PM Age: 62 years old Clinical indication: Injury or trauma; Other: 4th digit pain post fall TECHNIQUE: Imaging protocol: Radiologic exam of the right hand. Views: 3 or more views. COMPARISON: No relevant prior studies available. FINDINGS: Bones/joints: Normal. Soft tissues: Normal. IMPRESSION: No acute findings. Dictated and Authenticated by: Felipe iNckerson MD. Ordering:SUZANNE Daniel MD
--- NOTE | 2022-10-17 17:51 | DI.VRAD_ITS ---
PROCEDURE INFORMATION: Exam: XR Left Knee Exam date and time: 10/17/2022 5:44 PM Age: 62 years old Clinical indication: Injury or trauma; Injury details: Knee pain post fall TECHNIQUE: Imaging protocol: Radiologic exam of the left knee. Views: 3 views. COMPARISON: CR XR FOOT LT COMPLETE 07/17/2020 1:33 PM FINDINGS: Bones/joints: Small joint effusion. Degenerative changes noted. No acute fracture or dislocation Soft tissues: Normal. IMPRESSION: No acute fracture Small joint effusion Dictated and Authenticated by: Felipe Nickerson MD. Ordering:SUZANNE Daniel MD
--- NOTE | 2022-10-17 17:55 | DI.VRAD_ITS ---
PROCEDURE INFORMATION: Exam: XR Left Forearm Exam date and time: 10/17/2022 5:42 PM Age: 62 years old Clinical indication: Injury or trauma; Other: Pain post fall TECHNIQUE: Imaging protocol: Radiologic exam of the left forearm. Views: 2 views. COMPARISON: No relevant prior studies available. FINDINGS: Bones/joints: Normal. Soft tissues: Normal. IMPRESSION: No acute findings. Dictated and Authenticated by: Felipe Nickerson MD. Ordering:SUZANNE Dnaiel MD
--- NOTE | 2022-10-17 18:42 | W.ED.GENAD ---
Discharge Plan Disposition Patient Disposition: Home Discharge Details Clinical Impression: Effusion of knee, Finger fracture, left, Contusion of face, Abrasion forearm Primary Care Provider: Radha Moulton ED Provider: María Cabrera Home Meds and New Rx's Prescriptions: No Action No Known Home Meds Discharge Instructions Instructions: Finger Fracture (ED), Contusion in Adults (ED), Abrasion (ED) Additional Instructions: Please follow-up with orthopedics regarding your knee effusion and likely finger fracture Take ibuprofen and Tylenol as needed for pain Ice, elevate, rest as much as possible Return earlier should you have new or worsening complaints Referrals: Radha Moulton MD [Primary Care Provider] - lAon Chao MD [[facility] STAFF PHYSICIAN] - 1 day Discharge Data Discharge Date/Time-TO BE ENTERED AT DEPARTURE: 10/17/22 19:44 Medical Decision Making 62-year-old female with numerous injuries I will order CT scan facial bones, head, and x-rays of the knee, hand, and forearm for further assessment X-rays per radiology interpretation and my review does not show evidence of acute abnormality, CT of head and facial bones in addition to cervical spine do not show evidence of acute abnormality per radiology interpretation and my review I am concerned that patient has a finger fracture to her fourth digit, it may be volar plate fracture, she is placed in a splint for this secondary to decreased range of motion and diffuse ecchymosis, she also has an effusion on her left knee, suspect internal derangement, placed in a knee immobilizer We will refer to orthopedics Declines opiate analgesia Return precautions reviewed and patient expressed understanding Medical Records Medical records reviewed: Yes I reviewed the patient's medical records. HPI General Date/Time Provider Initiated Documentation: 10/17/22 15:35. HPI Narrative: This 62-year-old female presents with numerous pain complaints after slipping on some mud falling approximately 2 feet. She has pain to her left knee, her right fourth digit, her left periorbital region and some mild neck pain. She denies any loss of consciousness. She states she was able to ambulate after the event occurred. She denies any abdominal pain or chest wall pain. Related Data Home Medications Medication Instructions Recorded Confirmed Unknown [No Known Home Meds] 05/01/22 05/01/22 Allergies Allergy/AdvReac Type Severity Reaction Status Date / Time prochlorperazine edisylate Allergy Intermediate dystonic Verified 05/01/22 14:08 [From Compazine] prochlorperazine maleate Allergy Intermediate dystonic Verified 05/01/22 14:08 [From Compazine] reaction droperidol Allergy Verified 05/01/22 14:08 latex Allergy Verified 05/01/22 14:08 celecoxib [From Celebrex] AdvReac palpitations, Verified 05/01/22 14:08 visual changes,shaky, syncope duloxetine [From Cymbalta] AdvReac vomitting Verified 05/01/22 14:08 bee sting (hymenoptera Allergy per pt: Uncoded 05/01/22 14:08 Allergenic Extract Almost anaphylaxis General Stated Complaint: Fall/Non TraumaCriteria EPHRAIM: 3 PFSH All Active Problems (Updated 10/17/22 @ 18:46 by NISHA Kelley) Effusion of knee (Acute) Finger fracture, left (Acute) Contusion of face (Acute) Abrasion forearm (Acute) Syncope (Chronic) OAB (overactive bladder) (Acute) unable to afford Myrbetriq and Vesicare. Romero esophagus (Acute) GERD (gastroesophageal reflux disease) (Chronic) Psychogenic tremor (Acute 11/27/17) Mixed stress and urge urinary incontinence (Acute 01/20/18) Migraine without aura and without status migrainosus, not intractable (Acute 11/27/17) Memory loss (Acute 11/27/17) Hematuria (Chronic 01/20/18) chronic hematuria per patient, not related to UTI; has h/o negative cystoscopy in [place]. Fibromyalgia (Acute 11/27/17) Medical History Closed L5 vertebral fracture (~07/2020) due to trauma Urolithiasis while in [place]; passed stones in the ER. Surgical History History of appendectomy History of repair of rotator cuff History of surgical removal of pilonidal cyst Hx of tonsillectomy S/P D&C (status post dilation and curettage) S/P laparoscopic procedure S/P lymph node biopsy S/P Manuel fundoplication (without gastrostomy tube) procedure Family History Mother Cancer colon Father Stroke Depression Social History Smoking/Tobacco Use Status: Current-Occasional Tobacco: How many years used: 5 Counseling given: provider counseling Smoking risk assessment performed?: Yes Alcohol Intake: current Alcohol Intake frequency: holidays/special occasions only Drug use: Never Substance use type: does not use Caregiver/Support person: No Household members: other Details: Father Housing: house Number of Children: 0 Communication Needs: Hard of Hearing and Corrective Lenses Do you need help understanding health information?: Never 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, on disability for fibromyalgia and MS Pets and animals: Yes Pets and animals: dog(s) and bird(s) Sexually active: No Do you think of yourself as: straight/heterosexual Current gender identity: female What is your relationship status?: How often do you talk on the phone with friends or family?: three or more times per week How often do you get together with friends or relatives?: decline to answer How often do you attend cheondoism or baptist services?: 1-3 times per year Do you belong to any clubs or organized social groups?: yes Panel score (0-1 are the most socially isolated patients): 2 What type of physical activity do you participate in: decline to answer Duration: decline to answer Frequency: decline to answer [place]/Oriental Orthodox: Religion Special keara needs: No Seatbelt use: always Drive intox or ride w/intox driver's license reviewing officer: No Do you feel safe in your relationship?: Yes Exam Const General: cooperative, comfortable and no acute distress Orientation: alert and oriented x3 Eyes Pupils: PERRL Other: Left periorbital tenderness, no visible sign of trauma, pupils equal round reactive to light and accommodation. Neck Other: No midline tenderness Resp Effort & Inspection: normal respiratory effort Auscultation: clear to auscultation bilaterally Other: No chest wall tenderness Cardio Rate: regular rate Rhythm: regular rhythm GI Inspection: normal to inspection Other: No abdominal tenderness Skin General skin exam: no rashes or lesions noted Neuro General: patient alert and patient oriented x3 Cognition: normal cognition Speech: speech normal Extrem Other: Left knee with tenderness and mild swelling, abrasion,right 4th digit ecchymosis and swelling Course Vital Signs Vital signs: Vital Signs Temperature 37.3 C 10/17/22 15:26 Pulse 75 10/17/22 15:26 Respiratory Rate 18 10/17/22 15:26 Blood Pressure 134/104 H 10/17/22 15:26 Pulse Oximetry 99 10/17/22 15:26 Temperature 37.3 C 10/17/22 15:26 Temperature Source Skin 10/17/22 15:26 Pulse 75 10/17/22 15:26 Respiratory Rate 18 10/17/22 15:26 Respiratory Effort Normal 10/17/22 15:50 Blood Pressure 134/104 H 10/17/22 15:26 Pulse Oximetry 99 10/17/22 15:26 Oxygen Delivery Method Room Air 10/17/22 15:26 Oxygen Flow Rate 0 10/17/22 15:26 Pain Level 8 10/17/22 15:26 Comment repeat: 152/73 denies use of otc pain relivers lead pressman ro[employer] 10/17/22 15:26
[2022-10-17 19:45] VITALS: BP 140/83; PULSE 90; RESP 16; O2SAT 96
== END 2022-10-17 19:44 | disposition home or self-care (01) ==
PROVIDERS: Emergency Provider Physician Assistant; PCP Family Medicine
DX: S62.605A Fracture of unspecified phalanx of left ring finger, initial encounter for closed fracture (principal); S00.83XA Contusion of other part of head, initial encounter; S50.812A Abrasion of left forearm, initial encounter; M25.462 Effusion, left knee; Z23 Encounter for immunization; W01.0XXA Fall on same level from slipping, tripping and stumbling without subsequent striking against object, initial encounter
CPT/HCPCS: 29130; 73562; 90471; 99284; 70450; 70486; 72125; 73090; 73130; 99283

== ENCOUNTER → 2022-10-24 08:10 | Outpatient (BNVA) | payer MEDICARE, SELFPAY | PROVIDERS: PCP Family Medicine; Referring Provider Family Medicine | DX: S80.02XA Contusion of left knee, initial encounter (principal); S60.041A Contusion of right ring finger without damage to nail, initial encounter; W00.9XXA Unspecified fall due to ice and snow, initial encounter | CPT/HCPCS: 99214 ==

== ENCOUNTER → 2022-10-31 09:18 | Outpatient (BNVA) | payer MEDICARE, SELFPAY | PROVIDERS: PCP Family Medicine; Referring Provider Family Medicine | DX: S60.041D Contusion of right ring finger without damage to nail, subsequent encounter (principal); S80.02XD Contusion of left knee, subsequent encounter; X58.XXXD Exposure to other specified factors, subsequent encounter | CPT/HCPCS: 99213 ==

== ENCOUNTER → 2022-11-25 10:38 | Outpatient (BNVA) | payer MEDICARE, SELFPAY | PROVIDERS: PCP Family Medicine; Referring Provider Family Medicine; Visit Provider Student in an Organized Health Care Education/Training Program | DX: S60.041D Contusion of right ring finger without damage to nail, subsequent encounter (principal); S80.02XD Contusion of left knee, subsequent encounter; X58.XXXD Exposure to other specified factors, subsequent encounter | CPT/HCPCS: 99213 ==

== ENCOUNTER 2022-11-30 14:19 | Outpatient (REF) | payer MEDICARE, SELFPAY ==
--- NOTE | 2022-11-30 13:55 | PAPFT_PTH ---
PATIENT: Kelly Briones LOC: [facility] U#:[id number] AGE/SX: 62/F ROOM: RE11/30/[address]: Weston Gonzalez DNP : 1960 BED: DIS: 11/30/2022 SPEC #: [id number] RECD: 12/03/22 17:08 STATUS: WILLIAM RECarlton #: [id number] RENEE: 11/30/22 13:[address]: Weston Bernabe DEPT: [facility] Cytology RECD BY: María Wallace Tissues: 1 - CX/ENDOCX FOR PAP SMEARS Procedures: PAP THIN PREP/[facility] Screening Comments: [id number]
== END 2022-11-30 14:20 | disposition home or self-care (01) ==
LOC: LBN 14:19
PROVIDERS: PCP Nurse Practitioner Family; Visit Provider Nurse Practitioner Family
DX: Z12.4 Encounter for screening for malignant neoplasm of cervix (principal)
CPT/HCPCS: 88142

== ENCOUNTER 2023-01-13 15:05 | Outpatient (CLI) | payer MEDICARE, SELFPAY ==
--- NOTE | 2023-01-13 14:57 | DI.RAD_ITS ---
Exam(s) XR FOOT RT COMPLETE EXAM: XR FOOT RT COMPLETE CLINICAL HISTORY: right foot injury. TECHNIQUE: 2D digital imaging was performed. COMPARISON: CR XR FOOT LT COMPLETE from 07/17/2020 FINDINGS: 3 views No evidence of acute fracture or diastasis of the Lisfranc joint. Bone density normal. No osseous l esions. No erosions. There is no radiopaque foreign body. On the medial aspect of the foot there are opposing osteophytic densities at the level of the of the navicular tuberosity and distal medial talus. IMPRESSION: Medial findings as above but no acute fractures evident. DATA REPOSITORY: RADIATION DOSE DELIVERED:
== END 2023-01-13 15:06 | disposition home or self-care (01) ==
LOC: DIORS 15:06
PROVIDERS: PCP Nurse Practitioner Family; Referring Provider Nurse Practitioner Family; Visit Provider Student in an Organized Health Care Education/Training Program
DX: S80.02XD Contusion of left knee, subsequent encounter; S60.041D Contusion of right ring finger without damage to nail, subsequent encounter; W00.9XXD Unspecified fall due to ice and snow, subsequent encounter; M19.071 Primary osteoarthritis, right ankle and foot
CPT/HCPCS: 99214; 73630

== ENCOUNTER 2023-01-30 02:36 | Outpatient (CLI) | payer MEDICARE, SELFPAY ==
--- NOTE | 2023-01-30 07:45 | DI.MRI_ITS ---
Exam(s) MR LOWER JOINT RT WO EXAM: MR LOWER JOINT RT WO CLINICAL HISTORY: increased pain after fall, CT done in 2020,RT HIP PAIN,M25.561 TECHNIQUE: Multiplanar multisequence MRI of the hip was performed. COMPARISON: CT CT ABDOMEN PELVIS W from 09/27/2020 FINDINGS: MARROW:There is no evidence of fracture, bone contusion, nor avascular necrosis. There are no signif icant osseous lesions.There is no significant osseous excrescence at the femoral head-neck junction t o suggest the presence of cam-type RAYSHAWN. EFFUSION: There is no evidence of joint effusion. BURSAE: There is no evidence of trochanteric bursitis. There is no evidence of iliopsoas bursitis. HIP JOINT SPACE: Mild cartilage loss. No prominent chondral defects. No degenerative subarticular c ysts evident. No osteophytes evident.There is no hypertrophy of the ligamentum teres nor signal abno rmality at the fovea centralis. LABRUM: There is no evidence of obvious labral tear nor evidence of paralabral cyst. TENDONS: No evidence of tendinitis nor tendon tears ISCHIAL TUBEROSITY/HAMSTRING: There is no abnormal intraosseous signal in the ipsilateral ischial tub erosity nor tear of the common hamstrings tendon attachment site at this level. OTHER: There is no abnormal intramuscular signal within the quadratus femoris to suggest the presence of impingement syndrome at this level. Extensive sigmoid diverticulosis incidentally noted. IMPRESSION: 1. Mild hip joint degenerative findings. No osteophytes. No obvious labral tears. 2. No evidence of stress fracture or avascular necrosis. No hip joint effusion. 3. Extensive sigmoid diverticulosis incidentally noted. DATA REPOSITORY:
--- NOTE | 2023-01-30 07:45 | DI.MRI_ITS ---
Exam(s) MR LUMBAR SPINE WO EXAM: MR LUMBAR SPINE WO CLINICAL HISTORY: increased LBP after fall, CT done in 2020, PT done,CLOSED L 5 FX,S32.059A. TECHNIQUE: Multiplanar multisequence MRI of the Lumbar spine was performed. COMPARISON: No exams were available for comparison FINDINGS: Conus medullaris is at normal level. There is no evidence of conus mass nor subjacent clumping of in trathecal nerve roots to suggest arachnoiditis. The distal thecal sac appears unremarkable.There is no evidence of Tarlov intrasacral cysts nor other significant findings within the sacral canal Bones:There are no fractures nor ominous osseous lesions in the lumbar vertebral bodies and visualize d sacrum. There is a benign intraosseous hemangioma in the L5 vertebral body. Also another benign i ntraosseous hemangioma evident in the posterior right iliac bone. With respect to the individual levels... T12-L1: Unremarkable L1-2: There is mild posterior annular bulging at this level. No prominent disc herniation evident. Central canal dimensions are within normal limits. No significant foraminal stenosis on either side. No facet arthropathy. L2-3: Normal disc height. No disc herniation nor central canal stenosis.No foraminal stenosis.No face t arthropathy. L3-4: Normal disc height. No disc herniation or central canal stenosis.No foraminal stenosis.No face t arthropathy. L4-5: Normal disc height and signal. No disc herniation or central canal stenosis. An no significan t foraminal stenosis. There is some degenerative change in the right facet joint at this level. The re is T2 bright signal in the synovial cavity on the right side. No evidence of degenerative synovia l cyst. No foraminal stenosis on either side at this level. Milder degenerative changes in the left facet joint. L5-S1: This level exhibits minimally decreased disc height. There is a small posterolateral right di sc protrusion at this level which extends posteriorly 2 millimeters and is approximately 5 mm wide. This is at the level the exiting right neural foramen but there is no foraminal stenosis evident on e ither side at this level. Also no central canal stenosis. Facet joints exhibit only mild degenerati ve changes at this level. Soft tissues: paraspinal soft tissues appear unremarkable. IMPRESSION: 1. There is a very small posterolateral right disc protrusion at L5-S1 level. No associated central nor foraminal stenosis. 2. There is mild annular bulging at L1-2 level. Prominent disc herniation at this level. No central nor foraminal stenosis. 3. There is facet arthropathy noted at L4-5 level, more prominent on the right side as described abov e. No evidence of degenerative synovial cyst. DATA REPOSITORY:
== END 2023-01-30 02:56 ==
LOC: DI 02:36
PROVIDERS: PCP Nurse Practitioner Family; Visit Provider Nurse Practitioner Family
DX: W19.XXXA Unspecified fall, initial encounter; M51.26 Other intervertebral disc displacement, lumbar region
CPT/HCPCS: 73721; 72148

== ENCOUNTER 2023-02-03 00:41 | Outpatient (CLI) | payer MEDICARE, SELFPAY ==
--- NOTE | 2023-02-03 07:30 | DI.MRI_ITS ---
Exam(s) MR LOWER JOINT LT WO EXAM: MR LOWER JOINT LT WO CLINICAL HISTORY: PAIN, INJURY, CONTUSION LT KNEE, S80.02XA TECHNIQUE: Multiplanar multisequence MRI of the knee was performed. COMPARISON: CR,XR XR KNEE LT 3V AP,LAT,SHILA from 10/17/2022 FINDINGS: EFFUSION: There is a small amount of increased joint fluid. No Matamoros's cyst in the popliteal fossa. MARROW:There is no evidence of fracture, bone contusion, nor osteochondral defects.. There are no si gnificant osseous lesions. PATELLOFEMORAL COMPARTMENT: The quadriceps tendon is intact. The patellar ligament is intact. There is significant generalized thinning of the retropatellar cartilage-advanced chondromalacia. Mi ld increased intraosseous signal is also evident in the posterior aspect of the patella, including a small subarticular cysts the inferolateral aspect of the patella measuring 3 mm by 2 mm.There is no i ntraosseous signal to suggest recent patellar dislocation. There are no patellar retinacular tears. CRUCIATE LIGAMENTS: The anterior cruciate ligament is intact.The posterior cruciate ligament is intac t. MEDIAL COMPARTMENT/MEDIAL MENISCUS: Complex tearing of the posterior horn of the medial meniscus. Fo urth horizontal and oblique components. No bucket-handle configuration. There are no flipped menisc al fragments. Meniscal root appears intact anterior horn appears intact.. There is multifocal chondral thinning over the medial femoral condyle. There is a small finding in t he most posterior aspect of the medial condyle which has appearance of a small possible osteochondral defect. MEDIAL COLLATERAL LIGAMENT: Intact LATERAL COMPARTMENT/LATERAL MENISCUS: There is no evidence of lateral meniscal tear.Some chondral thi nning noted over the lateral condyle. Also a small marginal osteophytes. No subarticular edema. ILIOTIBIAL BAND: Intact LATERAL COLLATERAL LIGAMENT COMPLEX: The fibular collateral ligament is intact. The biceps femoris t endon is intact.Popliteus muscle and tendon are intact. IMPRESSION: 1. There is a complex tear of the posterior horn of the medial meniscus. No bucket-handle configurat ion nor flipped fragments. There is some overlying cartilage abnormality as described above. There are no tears of the lateral meniscus. 2. No collateral ligament tears and no cruciate ligament tears. 3. Advanced chondromalacia patella. Some degenerative signal is noted in the posterior aspect the pa tella. No patellar retinacular tears evident. 4. Small joint effusion. No Matamoros cyst. No obvious loose intra-articular bodies. DATA REPOSITORY:
== END 2023-02-03 01:01 ==
LOC: DI 00:42
PROVIDERS: PCP Nurse Practitioner Family; Visit Provider Student in an Organized Health Care Education/Training Program
DX: S83.232A Complex tear of medial meniscus, current injury, left knee, initial encounter; M22.42 Chondromalacia patellae, left knee; X58.XXXA Exposure to other specified factors, initial encounter
CPT/HCPCS: 73721

== ENCOUNTER → 2023-02-24 10:16 | Outpatient (BNVA) | payer MEDICARE, SELFPAY | PROVIDERS: PCP Nurse Practitioner Family; Referring Provider Nurse Practitioner Family; Visit Provider Student in an Organized Health Care Education/Training Program | DX: S80.02XD Contusion of left knee, subsequent encounter (principal); S83.242D Other tear of medial meniscus, current injury, left knee, subsequent encounter; W19.XXXD Unspecified fall, subsequent encounter; M23.92 Unspecified internal derangement of left knee | CPT/HCPCS: 99213 ==

== ENCOUNTER 2023-03-19 09:08 | Day surgery (SDC) | payer MEDICARE, SELFPAY ==
[2023-03-19] VITALS (11 sets, daily range): BP systolic 108–129; BP diastolic 53–86; PULSE 56–81; RESP 13–20; TEMP 35.8–36.6; O2SAT 90–98; BMI 32.5
--- NOTE | 2023-03-19 09:31 | W.PM.DSUDISC ---
Date of service: 03/19/23 Time of Service: 09:31 Discharge Plan Disposition Patient Disposition: Home Condition: Good Discharge Details Reason For Visit: L knee arthroscopy Attending Provider: Amadeo Azevedo Primary Care Provider: Weston Bernabe Home Meds and New Rx's Prescriptions: New hydrocodone-acetaminophen 5-325 mg tablet 1 tab PO Q6H PRN (Reason: pain) Qty: 12 0RF acetaminophen 500 mg tablet 1,000 mg PO TID Qty: 90 0RF Continued diphenhydramine HCl [Benadryl] 25 mg capsule 25 mg PO QHS PRN propranolol 10 mg tablet 10 mg PO BID PRN (Reason: anxiety) Qty: 180 4RF Discontinued hydrocodone-acetaminophen 5-325 mg tablet 1 tab PO Q4H MDD 6 tabs PRN (Reason: pain) Qty: 12 0RF acetaminophen 500 mg tablet 500 mg PO Q6H PRN (Reason: pain) Qty: 40 0RF Discharge Instructions Stand Alone Forms: Roberto [facility] Knee Arthroscopy Equipment/Supplies: Partial Weight Bearing Crutches Activity:: Activity as Tolerated Remove Dressings/Wound Care:: 72 hours Shower/Bathe:: 72 hours Diet:: As Tolerated Discharge Orders Discharge Orders: Discharge Order (Routine); Ordered 03/19/23 Ordered By: Kashif Lynn DS: Diagnosis Discharge Diagnosis (1) Tear of medial meniscus of left knee: Status: Acute
--- NOTE | 2023-03-19 09:48 | W.ANESPRE ---
General Info Date of Service Date Performed: 03/19/23 Height: 5 ft 6.5 in Weight: 92.7 kg Body Mass Index (BMI): 32.5 Surgical Procedure: Operation Date: 03/19/23 12:10 Proposed Procedure Side Surgeon p Knee Arthroscopy Left Amadeo Azevedo MD Meds Allergies and Home Medications Allergies Allergy/AdvReac Type Severity Reaction Status Date / Time prochlorperazine edisylate Allergy Intermediate dystonic Verified 03/19/23 09:35 [From Compazine] prochlorperazine maleate Allergy Intermediate dystonic Verified 03/19/23 09:35 [From Compazine] reaction droperidol Allergy Verified 03/19/23 09:35 latex Allergy Verified 03/19/23 09:35 celecoxib [From Celebrex] AdvReac palpitations, Verified 03/19/23 09:35 visual changes,shaky, syncope duloxetine [From Cymbalta] AdvReac vomitting Verified 03/19/23 09:35 bee sting (hymenoptera Allergy per pt: Uncoded 03/19/23 09:35 Allergenic Extract Almost anaphylaxis MACANESE CHEESE AdvReac Severe Anaphylaxis Uncoded 03/19/23 09:35 Home Medication Medication Instructions Recorded diphenhydramine HCl 25 mg capsule 25 mg PO QHS PRN 11/25/22 (Benadryl) propranolol 10 mg tablet 10 mg PO BID PRN anxiety #180 tabs 02/21/23 acetaminophen 500 mg tablet 1,000 mg PO TID #90 tabs 03/19/23 hydrocodone 5 mg-acetaminophen 325 1 tab PO Q6H PRN pain #12 tabs 03/19/23 mg tablet Current Visit Medications: Current Medications Generic Name Dose Route Start Last Admin Trade Name Freq PRN Reason Stop Dose Admin Acetaminophen 650 mg 03/19/23 09:30 Acetaminophen 325 Mg Tab PO 04/18/23 09:29 Q4H PRN PRN Hydrocodone Bitart/Acetaminophen 0 tab 03/19/23 09:30 Hydrocodone 5/Acetaminophen 325 Tab PO 04/18/23 09:29 Q3H PRN PRN Pain Ringer's Solution 1,000 mls @ 80 mls/hr 03/19/23 06:00 IV 04/17/23 23:59 INFUSION GALDINO Cefazolin Sodium/Dextrose 2 gm in 50 mls @ 100 mls/hr 03/19/23 06:00 Ancef Duplex IVPB 03/19/23 16:00 PREOP GALDINO IV Miscellaneous Supplies 1 each 03/19/23 06:00 Iv Access IV 04/17/23 23:59 DIRECTED GALDINO Sodium Chloride 0 ml 03/19/23 06:00 Normal Saline Flush 10 Ml Syr IV 04/17/23 23:59 PRN PRN Sodium Chloride 0 ml 03/19/23 06:00 Normal Saline 10 Ml Vial IJ 04/17/23 23:59 DIRECTED PRN Sterile Water 0 ml 03/19/23 06:00 Water,Injection,Sterile 10 Ml Vial IJ 04/17/23 23:59 DIRECTED PRN PFSH Active Problems Active Problems: Problem Status Onset Code Tear of medial meniscus of left knee S83.242A Fibromyalgia 11/27/17 M79.7 Hematuria 01/20/18 R31.9 Memory loss 11/27/17 R41.3 Migraine without aura and without status migrainosus, not intractable 11/27/17 G43.009 Mixed stress and urge urinary incontinence 01/20/18 N39.46 Psychogenic tremor 11/27/17 F44.4 OAB (overactive bladder) N32.81 GERD (gastroesophageal reflux disease) K21.9 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 Surgical History Surgical History History of appendectomy History of repair of rotator cuff History of surgical removal of pilonidal cyst Hx of tonsillectomy S/P D&C (status post dilation and curettage) S/P laparoscopic procedure S/P lymph node biopsy S/P Manuel fundoplication (without gastrostomy tube) procedure Tobacco Smoking/Tobacco Use Status: Former Tobacco Use Counseling given: provider counseling Alcohol Alcohol Intake: current Alcohol intake frequency: holidays/special occasions only Substance Use Substance use: Never Substance use type: does not use Vital Signs and Lab Results Vital Signs Most Recent Vital Signs in EMR: Most Recent Vital Signs Temp Pulse Resp BP Pulse Ox 35.8 C L 81 20 128/86 94 03/19/23 09:10 03/19/23 09:10 03/19/23 09:10 03/19/23 09:10 03/19/23 09:10 Lab Results Blood Type / Crossmatch: No Data to Display Complete Blood Count: No Data to Display Complete Metabolic Panel: No Data to Display Liver Function Panel: No Data to Display Coagulation Panel: No Data to Display Cardiac Panel: No Data to Display Arterial Blood Gas: No Data to Display Venous Blood Gas: No Data to Display Pancreas Panel: No Data to Display Thyroid Panel: No Data to Display Infectious Disease: No Data to Display Blood Cultures: No Data to Display Toxicology Panel: No Data to Display Imaging and Studies Imaging and Studies Study information below may be from another EMR and interpreted by another provider. Please see original notes in EMR for more complete details. EKG Summary: EKG PATIENT NAME: Kelly Briones #: [id number] ORDERING PROVIDER: Weston Bernabe NPACCOUNT #: [id number] PRIMARY CARE PROVIDER:EMELINA LEHMAN MD DATE/TIME OF SERVICE: 05/01/221427 : 1960PERFORMING LOCATION: [facility] APPROVED REPORT Exam: Resting ECG Reason for Exam: tachycardia Patient Location: O HR:77 bpm ECG Measurements Heart Rate 77 AXIS LA 163 P 38 QRSd 78 QRS -17 QT 353 T-12 QTc 400 Conclusion Sinus rhythm...normal P axis, V-rate 50- 99 Baseline artifact Probably normal EKG <Electronically signed by LUÍS MCMAHON MD in OV> E-Sign Date: 05/02/22 E-Sign Time: 825 Anesthesia Assessment and Plan Anesthesia History Personal History: No History of Anesthesia Complications Family History: No Family History of Anesthesia Complications Exercise Tolerance Exercise Tolerance: Metabolic Equivalents>4 Pertinent Negatives Pertinent Negatives: No Major Cardiovascular Symptoms or Complaints, No Major Pulmonary Symptoms or Complaints and No History of CVA/TIA Cardiac & Pulmonary Exam Cardiac Exam: Normal S1/S2 Heart Sounds Pulmonary Exam: Clear Bilateral Breath Sounds Implantable Cardiac Device Does patient have a Pacemaker or an ICD?: No Airway Exam Known Difficult Airway: No Mallampati Class: 2 Mouth Opening: Normal (> 3cm) Thyromental Distance: Greater than 3 cm Neck Range of Motion: Full ROM Neck Circumference: Normal Teeth Condition: Normal Dentition, Loose or Chipped and Dental Caries Airway Comments: Several broken teeth in upper molars bilaterally. ASA Classification ASA Score: ASA 2 Emergency Case?: No NPO Status NPO Status: NPO Clears >2 hours, Solids >8 hours Anesthesia Plan Resuscitation Status: Full Code Anesthesia Technique: General Anesthesia Airway Planned: LMA (ETT as secondary) Monitors Used: Standard Monitors
[2023-03-19] MEDS: Lactated Ringers 1,000 ML 80 ML IV (09:57)
--- NOTE | 2023-03-19 09:59 | NUR.NOTE ---
I spoke with charge nurse Joi Mitchell RN and Dr Azevedo about Pt's discharge plan. Pt will be going home via [employer] and must walk down driveway and go up 6 stairs to enter house. 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 Dr Azevedo spoke with Pt and okd the plan.Nursing Note:
[2023-03-19] MEDS: ceFAZolin 2 GM/50 ML BAG IVPB (11:38)
[2023-03-19] MEDS: Bupivacaine 0.25% Pres-Free 30 ML VIAL (12:00)
[2023-03-19] MEDS: EPINEPHrine 30 MG/30 ML VIAL (12:24)
[2023-03-19] MEDS: ACETAMINOPHEN 1,000 MG/100 ML BTL 400 MG IVPB (13:05)
[2023-03-19] MEDS: Ketorolac 15 MG/ML VIAL IVP (13:05)
--- NOTE | 2023-03-19 14:45 | W.ANESPOSTOP ---
Postoperative Evaluation Date, Time and Location Date Performed: 03/19/23 Time Performed: 14:45 Patient Location: PACU Vital Signs Most Recent Imported Vital Signs: Most Recent Vital Signs Temp Pulse Resp BP Pulse Ox 36.5 C 73 18 129/72 93 03/19/23 14:15 03/19/23 14:15 03/19/23 14:15 03/19/23 14:15 03/19/23 14:15 Pain Score Most Recent Pain Score: Most Recent Pain Score Pain Level 1 03/19/23 14:15 Assessment Mental Status: Awake (Alert & Oriented to Patient Baseline) Airway and Respiratory Function: Patent airway with normal (patient baseline) respiratory exam Cardiovascular Function: Hemodynamically Stable Hydration Status: Adequately Hydrated Nausea & Vomiting: No Nausea or Vomiting Pain: Pain is tolerable per patient Peripheral Nerve Block: Patient did not receive a nerve block Postoperative Comments:: Patient seen earlier today in PACU. Per surgeon patient to be discharged home via taxi. Discussed my preference patient have an appropriate adult with her as she just had general anesthetic, feeling is that she is working with PT and will be appropriate for home from a surgical perspective. Patient is otherwise doing well and is clearing her anesthetic, desires to go home.
--- NOTE | 2023-03-19 15:27 | IN_ITS ---
PT Notes Visit Reasons: L knee arthroscopy Physical Therapy Day Surgery Unit Initial Evaluation Date: 03/19/2023 Referring Doctor: NISHA Don PT Orders: PT CONSULT: Eval/Treat Precautions: Fall. Standard. Activity as tolerated. PWB with AD. Patient Profile/Admitting Diagnosis: Patient is a 62-year-old female with medial mensicus tear of the L knee and is S/P arthroscopic partial meniscetomy on postoperative day 0. PT referral was made to provide training with mobility tasks. PMHX: All Active Problems?(Updated 02/24/23 @ 11:16 by Jenny Mayes) Internal derangement of left knee (Acute) Tear of medial meniscus of left knee (Acute) Fibromyalgia (Acute 11/27/17) Hematuria (Chronic 01/20/18) chronic hematuria per patient, not related to UTI; has h/o negative cystoscopy in [place]. Memory loss (Acute 11/27/17) Migraine without aura and without status migrainosus, not intractable (Acute 11/27/17) Mixed stress and urge urinary incontinence (Acute 01/20/18) Psychogenic tremor (Acute 11/27/17) OAB (overactive bladder) (Acute) unable to afford Myrbetriq and Vesicare. GERD (gastroesophageal reflux disease) (Chronic) Romero esophagus (Acute) Syncope (Chronic) Contusion of left knee (Acute 10/17/22) Contusion of right ring finger (Acute 10/17/22) Anxiety (Chronic) Arthritis of right foot (Acute) Right hip pain (Acute) Medical History? Closed L5 vertebral fracture (~07/2020) due to trauma Urolithiasis while in [place]; passed stones in the ER. Surgical History? History of appendectomy History of repair of rotator cuff History of surgical removal of pilonidal cyst Hx of tonsillectomy S/P D&C (status post dilation and curettage) S/P laparoscopic procedure S/P lymph node biopsy S/P Manuel fundoplication (without gastrostomy tube) procedure Social History/Home Situation: Lives alone in a private home with 6 steps to enter with rails on B sides. 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 Equipment Owned/DME: None Subjective: Initially anxious about walking and using the stairs but felt better when she actually did these activities later in the eval. Objective: General Observation: Patient being assisted by DIE ENGRAVER onto the toilet. PT requetsted to take over for evaluation. MARISELA wrap over dressing on L knee. Mental Status: Alert and oriented as to person, place, time, and purpose. Able to pay attention, focus, and respond appropriately. Pain: 2-3/10 in the L knee Vital Signs: WNL as closely monitored by nurse ROM: Right Lower Extremity: Hip flexion WFL. Hip abduction WFL. Knee flexion WFL. Ankle dorsiflexion WFL. Ankle plantarflexion WFL. Left Lower Extremity: Hip flexion WFL. Hip abduction WFL. Knee flexion 0-100 degrees. Ankle dorsiflexion WFL. Ankle plantarflexion WFL. Strength: Right Lower Extremity: Hip flexors 5/5. Hip abductors 5/5. Knee flexors 5/5. Knee extensors 5/5. Ankle dorsiflexors 5/5. Ankle plantarflexors 5/5. Left Lower Extremity: Hip flexors 4/5. Hip abductors 4/5. Knee flexors 3-/5. Knee extensors 4-/5. Ankle dorsiflexors 4/5. Ankle plantarflexors 4/5. Bed Mobility/Transfers: Sit to stand stand by assist Stand to sit stand by assist Bed to toilet seat stand by assist using FWW Toilet seat to bed stand by assist using FWW Gait: Instructed patient with level surface ambulation of 150 feet requiring stand by assist and minial cueing for increasing L knee flexion to allow for a less stiff L LE during L limb advancement. reported no increase in pain. Stairs: Ascended and descended 6 x 4-inch steps and 4 x 6-inch steps awhile holding onto B rails with step-to gait pattern with minimal cues provided to increase knee flexion on the L side during L LE ascent. Balance: Static Sitting: Normal Dynamic Sitting: Normal Static Standing: Fair Dynamic Standing: Fair Special Tests: Mobility Limitations Standardized Measure [facility] AM-PAC 6 clicks Basic Mobility Inpatient Short Form: Raw Score: 24 CMS Score: 0% deficit Informed Consent/Education: Patient was instructed in purpose of PT consult. Demonstrates good mastery of safety techniques with level surface ambulation and with the stairs using FWW. Assessment: Patient requires the use of a front wheeled walker to maximize independence and reduce fall risk postoperatively. Patient presents with clinical signs and symptoms consistent with current/admitting diagnoses that have resulted to mobility limitations, gait instability, generalized weakness, and overall ADL decline as demonstrated by the following impairment level findings: 1. Decreased strength to L knee major muscle groups 2. Impaired standing balance 3. Impaired activity tolerance 4. Limitation of joint range of motion in L knee flexion 5. Shortness of breath 6. Swelling Impairments are contributing to the following functional limitations: 1. Difficulty with ambulation without assistive device and physical assistance 2. Increased completion time for mobility ADL performance 3. Increased risk for falls Patient is assessed as a 53526 moderate complexity based on the following: History: 62-year-old female with past medical history as indicated above Examination: Demonstrable impairment in strength, balance, and mobility level with underlying impairments and functional limitations as exhibited above as well as deficit score of 0% utilizing the [facility] Mobility Inpatient Short Form Presentation: Evolving Decision Makin moderate complexity Goals: N/A. PT evaluation in 1 treatment session for functional mobility training and HEP instruction. Plan of Care/Treatment Plan: N/A. PT evaluation in 1 treatment session for functional mobility training and HEP instruction. DISCHARGE RECOMMENDATIONS: [X] Home with no services. Home when medically cleared by orthopedic surgeon. [] Home with services [specify] [] Home with outpatient PT [] [] SNF for continued rehabilitation [] [] [facility] [] [] SNF versus LTC based on ability to participate and progress [] TREATMENT CODE/TIME: 94796 x 19 minutes beginning at 14:30 PM. Thank you for the opportunity to participate in the care of this patient. Kiara Avila PT, DPT, CLT [facility] [place], [place]
--- NOTE | 2023-03-19 21:42 | ROE_ITS ---
Date of service: 03/19/23 Time of Service: 12:20 Operative Note Operative Note DATE OF PROCEDURE: 03/19/23 PRE-OP DIAGNOSIS: Left Knee Medial Meniscus Tear POST-OP DIAGNOSIS: same PROCEDURE: Arthroscopic Partial Medial Menisectomy - Left Knee SURGEON: Amadeo Azevedo ANESTHESIA TYPE: General LMA/ETT Refer to Anesthesia Record ESTIMATED BLOOD LOSS: 0 PATHOLOGY: none sent COMPLICATIONS: None Patient was transported to: PACU Patient's condition: stable Indications: I have seen Isabela in clinic for symptoms of a meniscus tear. This was confirmed based on MRI and exam findings. Nonoperative measures were exhausted but disability and pain persisted. I discussed knee arthroscopy with meniscal intervention with the patient. I reviewed the risks of the procedure to include, but not limited to, bleeding, infection, pain, stiffness, damage to nerves or vessels, recurrence, blood clot. Despite these risks, the patient elected to proceed. Findings: A diagnostic arthroscopy was performed with the following findings: Suprapatellar Pouch: Moderate inflammatory changes, No loose bodies Medial Compartment: Complex medial meniscal tear with a radial component and complete peripheral detachment posteriroyl, Intact meniscal root, Grade II chondormalacia without focal defects, No loose bodies Notch: ACL and PCL were intact Lateral Compartment: Meniscal fraying but no tear, Intact meniscal root, Grade I chondromalacia, No loose bodies Patellofemoral Compartment: Grade III chondromalacia of the trochlea and Grade II/III of the patella, No apparent patellar maltracking Procedure Description: Isabela was greeted in the preoperative holding area where the correct side was identified and marked. The consent was reviewed with the patient and signed. The history and physical was updated. All questions were answered. She was taken back to the operating room. The patient was placed into the supine position on the operating room table. A nonsterile tourniquet was placed high onto the leg but not used. All bony prominences were well padded. Prophylactic antibiotics in the form of Cefazolin were administered. The left leg was then prepped with Chloraprep and draped in a standard fashion with stockinette and extremity drape. A timeout to confirm correct identity, side and site, procedure, allergies, anesthesia, and medical concerns was performed. The leg was placed into a pneumatic leg caceres, SPIDER2. A standard lateral po rtal was made at the lateral border of the patella tendon in line with the inferior pole of the patella, soft spot. The skin and deep tissue was incised sharply and the blunt trochar was inserted atraumatically. A diagnostic arthroscopy was performed and the findings are listed above. The suprapatellar pouch had moderate inflammation. The patellofemoral articulation showed Grade III chondromalacia of the trochlea which was chronic appearing with some Grade II/III chondromalacia of the patella with good tracking. The lateral gutter had no loose bodies but a small osteophyte and the medial gutter had no loose bodies. The knee was brought into some valgus stress in extension to open the medial compartment. A medial portal was made, localized by a spinal needle. The portal was created with an #11 blade through skin and capsule under direct visualization avoiding any meniscal injury. A probe was then inserted into the medial compartment. The medial compartment was fully inspected. The chondral surface of the tibia showed Grade I chonodromalacia and the surface of the femur showed Grade II chondromalacia. The medial meniscus had an obvious complex, radial type tear at the posterior horn. This was derided with biters and then smoothed with a shaver. On further probing the meniscus between this tear and the posteiror root was completely unstable. There were no peripheral attachments. This appeared to have some level of scarring behind the meniscus. After evaluation, the meniscus was debrided down to a stable base using a series of biters and arthroscopic elaine, leaving only tissue at the posterior root. It was probed afterwards to confirm that the tear had been removed and the meniscus was stable. Cartilage surfaces were debrided of any flaps, leaving any intact fibers. The notch was then inspected which showed an intact ACL and an intact PCL. The leg was then brought into a figure of 4 position. The lateral compartment was fully inspected with the arthroscope and a probe. The chondral surface of the lateral femur showed Grade i chondromalacia. The chondral surface of the lateral tibia showed Grade I chondromalacia. The lateral meniscus had some fraying centrally but no tear. The arthroscope was brought back into the suprapatellar pouch and the leg was in full extension. The knee was thoroughly irrigated with the arthroscopic fluid on high flow and pressure. Inflow was stopped and excess fluid was removed. The wounds were closed with 4-0 Nylon. They were dressed with Xeroform, 4x4 gauze, ABD pad, Kerlix and an MARISELA wrap. A cryo-cuff was applied. The patient tolerated the procedure well and was returned to the Same Day Surgery area in a stable condition suffering no known complication.
== END 2023-03-19 15:38 | disposition home or self-care (01) ==
PROVIDERS: PCP Nurse Practitioner Family; Visit Provider Student in an Organized Health Care Education/Training Program
PROC: (CPT 29870; principal; 2023-03-19 12:00)
DX: M23.232 Derangement of other medial meniscus due to old tear or injury, left knee (principal); M94.262 Chondromalacia, left knee
CPT/HCPCS: 29881; 97161; J0131; J0690; J1100; J1885; J2001; J2250; J2405

== ENCOUNTER → 2023-03-31 10:09 | Outpatient (BNVA) | payer MEDICARE, SELFPAY | PROVIDERS: PCP Nurse Practitioner Family; Referring Provider Nurse Practitioner Family | DX: S83.242D Other tear of medial meniscus, current injury, left knee, subsequent encounter (principal); X58.XXXD Exposure to other specified factors, subsequent encounter ==

== ENCOUNTER → 2023-04-22 01:55 | Outpatient (CLI) | payer MEDICARE, SELFPAY ==
--- NOTE | 2023-04-22 11:00 | DI.MRI_ITS ---
Exam(s) MR CERVICAL SPINE WO EXAM: MR CERVICAL SPINE WO CLINICAL HISTORY: LBP, M54.50; LUMBAR SPONDYLOSIS, M47.816; PARESTHESIAS, R20.2, CERVICALGIA, TECHNIQUE: Multiplanar multisequence MRI of the cervical spine was performed without intravenous con trast. COMPARISON: No exams were available for comparison FINDINGS: CERVICOMEDULLARY JUNCTION: Intact with no evidence of cerebellar tonsillar ectopia. No obvious abnor mality of the odontoid process. No evidence of Chiari 1 malformation. CERVICAL SPINAL CORD: There is no abnormal signal in the cervical spinal cord and no evidence of foca l cord atrophy nor focal cord swelling. OSSEOUS:There are no cervical fractures evident. There is an area of signal abnormality in the anter ior half C3 vertebral body which has signal characteristics of a benign intraosseous hemangioma. No lytic osseous lesions evident in the cervical vertebrae. Normal cervical curvature is maintained. I n INDIVIDUAL LEVELS: C2-3: No disc herniation nor central canal stenosis. No foraminal stenosis. There is significant deg enerative change in the left facet joint at this level. No degenerative change in the right facet daniela int. No foraminal stenosis on the right side. Mild foraminal stenosis on the left side related to f acet arthropathy. C3-4: No disc herniation nor central canal stenosis.Right facet joint unremarkable. No foraminal ainsley nosis on the right side. Significant degenerative changes in the left facet joint noted as well as s ome foraminal stenosis on the left side evident. C4-5: Normal disc height. No disc herniation. No central canal stenosis. Right facet joints unrema rkable. No foraminal stenosis on the right side. Right-side facet joints at this level exhibit mild er degenerative changes in the right facet joints above this level. Mild right-sided foraminal steno sis evident C5-6: This level exhibits normal disc height. There is a small central subligamentous disc protrusi on at C5-6 level which slightly indents the thecal sac but not the spinal cord. Central canal dimen sions are within normal limits (11 mm AP). There are some degenerative changes in the facet joints b ilaterally at this level. No Luschka joint osteophytes. No significant foraminal stenosis on either side. C6-7: This level exhibits moderate decreased disc height and CIS signal. Posteriorly there is no tri dence of disc herniation or central canal stenosis. Small left sided Luschka joint osteophytes at th is level. Mild left-sided foraminal stenosis.. There is no right-sided Luschka joint osteophyte at this level. Right facet joint unremarkable. No foraminal stenosis on the right side at this level. C7-T1: No disc herniation nor central canal stenosis. No facet arthropathy.No foraminal stenosis. IMPRESSION: 1. Mild findings as described individually above. 2. There is a small central subligamentous disc protrusion at C5-6 level which slightly indents the t hecal sac but not the spinal cord and there is no central canal stenosis at this level. Mild facet a rthropathy noted at this level. No Luschka joint osteophytes evident at this level. No significant foraminal stenosis. 3. At C6-7 level there is moderate disc height loss above no disc protrusion. There is mild left-elias ed foraminal stenosis due to small left-sided Luschka joint osteophyte. Other level findings as above Benign intraosseous hemangioma is noted in the C3 vertebral body. DATA REPOSITORY:
== END ==
PROVIDERS: PCP Nurse Practitioner Family; Visit Provider Nurse Practitioner Family
DX: M47.816 Spondylosis without myelopathy or radiculopathy, lumbar region; R29.6 Repeated falls; R26.89 Other abnormalities of gait and mobility
CPT/HCPCS: 72141

== ENCOUNTER → 2023-04-28 10:49 | Outpatient (BNVA) | payer MEDICARE, SELFPAY | PROVIDERS: PCP Nurse Practitioner Family; Referring Provider Nurse Practitioner Family | DX: S83.242D Other tear of medial meniscus, current injury, left knee, subsequent encounter (principal); X58.XXXD Exposure to other specified factors, subsequent encounter ==

== ENCOUNTER → 2023-06-24 00:51 | Outpatient (CLI) | payer MEDICARE, SELFPAY ==
--- NOTE | 2023-06-24 08:00 | DI.MAMMO_ITS ---
Exam(s) MAMMO SCREENING EXAM: MAMMO SCREENING CLINICAL HISTORY: screening,Z12.39. TECHNIQUE: Bilateral full field digital CC and MLO mammographic images were obtained with 3D tomosyn thesis and utilizing computer aided detection (CAD). COMPARISON: Prior mammograms were reviewed. FINDINGS: Fibroglandular tissue pattern is again noted be predominately fatty. Benign-appearing small nodules again noted in both breasts which have the appearance of a small benig n intramammary lymph nodes. One of these in the right breast appears slightly larger than previous b ut still has appearance of a benign intramammary lymph node. There are no new spiculated masses nor malignant appearing microcalcification groups. There is no significant architectural distortion nor skin thickening-retraction. IMPRESSION: No radiographic evidence of malignancy. Benign findings. BI-RADS Category 2 - Benign Findings Breast Density - Category A - Almost entirely fatty Breast density Category C or D implies that the patient has dense breast tissue. Dense breast tissue can make it harder to find cancer on a mammogram. Dense breast tissue is also associated with an incr eased risk of breast cancer. This information about the result of the mammogram report was provided to the patient to raise their awareness. Use this report when you speak with the patient about their risks for breast cancer, which includes their family history. At that time, you may recommend additional screening tests (Ultrasoun d or MRI) as these tests may add significant information. A negative radiographic report should not delay biopsy if a dominant or clinically suspicious mass is present. Up to ten percent of cancers are not identified on mammography. A negative report may reinforce clinical impression. Adenosis and dense breasts may obscure an underlying neoplasm. False positive reports average 6 to 10%. Patient will receive a letter notifying them of these results.
== END ==
PROVIDERS: PCP Nurse Practitioner Family; Visit Provider Nurse Practitioner Family
DX: Z12.31 Encounter for screening mammogram for malignant neoplasm of breast (principal); R92.323 Mammographic fibroglandular density, bilateral breasts
CPT/HCPCS: 77063; 77067

== ENCOUNTER 2023-12-05 15:47 | Outpatient (REF) | payer MEDICARE, SELFPAY ==
[2023-12-05 21:11] LABS: ESR 36 mm/hr (0-30)
[2023-12-05 21:16] LABS: ALT 36 U/L (14-59); AST 21 U/L (15-37); Albumin 3.9 g/dL (3.4-5.0); Alkaline Phosphatase 132 U/L (46-116); Anion Gap 11.6 mmol/L (3-11); BUN 15 mg/dL (7-18); Bilirubin, Total 0.6 mg/dL (0.2-1.0); CO2 25.4 mmol/L (21.0-32.0); CREATININE 0.8 mg/dL (0.55-1.02); Calcium 9.3 mg/dL (8.5-10.1); Calculated LDL 155 mg/dL (<100); Chloride 106 mmol/L (98-107); Cholesterol 240 mg/dL (<200); Estimated GFR 81.72 (mL/min/1.73m2); Glucose 108 mg/dL (74-106); HDL Cholesterol 37 mg/dL (40-60); Sodium 143 mmol/L (136-145); Total Protein 7.5 g/dL (6.4-8.2); Triglyceride 241 mg/dL (<150)
[2023-12-05 22:25] LABS: C-Reactive Protein 0.71 mg/dL (<or=0.5)
[2023-12-08 08:57] LABS: Cyclic Citrullinated Peptide <2.5 U/mL (<5.0)
[2023-12-08 10:51] LABS: HIV-1/2 Ag & Ab Screen Negative (Negative)
[2023-12-08 11:16] LABS: Hepatitis C Ab w Rflx HCV PCR Negative (Negative)
[2023-12-08 14:12] LABS: Lyme Ab w Rflx to Lyme Confirm Negative (Negative)
[2023-12-08 15:14] LABS: ANA Interpretation Negative (Negative)
[2023-12-10 00:13] LABS: Anaplasma phagocytophilum Negative (Negative); B. miyamotoi PCR Negative (Negative); Babesia divergens/MO-1 Negative (Negative); Babesia duncani Negative (Negative); Babesia microti Negative (Negative); Ehrlichia chaffeensis Negative (Negative); Ehrlichia ewingii/canis Negative (Negative); Ehrlichia muris eauclairensis Negative (Negative)
== END 2023-12-05 15:48 | disposition home or self-care (01) ==
LOC: LBN 15:47
PROVIDERS: PCP Nurse Practitioner Family; Visit Provider Nurse Practitioner Family
DX: Z13.220 Encounter for screening for lipoid disorders (principal); Z11.4 Encounter for screening for human immunodeficiency virus [HIV]; Z11.59 Encounter for screening for other viral diseases
CPT/HCPCS: 80053; 80061; 85652; 86200; 86803; 87389; 87798; 86038; 86140; 86618

== ENCOUNTER → 2023-12-22 02:50 | Outpatient (CLI) | payer MEDICARE, SELFPAY ==
[2023-12-22] MEDS: Gadoterate meglumine 20 ML VIAL IVP (14:59)
[2023-12-22] MEDS: Normal Saline Flush 10 ML SYR IVP (14:59)
--- NOTE | 2023-12-22 15:30 | DI.MRI_ITS ---
Exam(s) MR BRAIN WO/W EXAM: MR BRAIN WO/W CLINICAL HISTORY: H/O MULTIPLE SCLEROSIS,Z87.39. TECHNIQUE: Multiplanar multisequence MRI of the brain was performed. CONTRAST MATERIAL: IV Contrast: 20 ML of Dotarem contrast administered. COMPARISON: CT CT HEAD CERV SPINE FACIAL WO from 10/17/2022 FINDINGS: VENTRICLES AND EXTRA AXIAL SPACES: Normal in size and morphology for the patient's age. HEMORRHAGE: None. CEREBRAL PARENCHYMA: No focus of restricted diffusion to suggest acute infarct. No space-occupying le zackary identified. There are few small scattered high signal foci in the white matter likely reflect ing microvascular changes. There are no periventricular lesions. Corpus callosum appears normal. MIDLINE SHIFT: None. BRAINSTEM/CEREBELLUM: Normal. CALVARIUM: Normal. ENHANCEMENT: No suspicious enhancement identified. VISUALIZED PARANASAL SINUSES/MASTOIDS: Clear. Orbits: Unremarkable. Pituitary: Normal. Vasculature: Normal flow voids. IMPRESSION: No specific findings for multiple sclerosis. DATA REPOSITORY:
== END ==
PROVIDERS: PCP Nurse Practitioner Family; Visit Provider Nurse Practitioner Family
DX: Z87.39 Personal history of other diseases of the musculoskeletal system and connective tissue (principal); G35 Multiple sclerosis
CPT/HCPCS: 70553